=== PATIENT | female | born 1960 | race Caucasian/White ===

== ENCOUNTER → 2017-01-23 | Outpatient (CLI) | payer BC ==
[~2017-01-23] MED LIST: METH4PAK4 PO; TRAM-10 PO
== END | disposition home or self-care (01) ==
LOC: C.PAPS 09:38
PROVIDERS: ATTEND Physician Assistant
DX: Z01.419 Encounter for gynecological examination (general) (routine) without abnormal findings (principal); Z87.42 Personal history of other diseases of the female genital tract

== ENCOUNTER → 2017-12-17 | Outpatient (CLI) | payer BC | END | disposition home or self-care (01) | LOC: C.PATHSPEC 17:50 | PROVIDERS: ATTEND Plastic Surgery | DX: C44.309 Unspecified malignant neoplasm of skin of other parts of face (principal) ==